=== PATIENT | male | born 1940 | race Caucasian/White ===

== ENCOUNTER → 2017-05-21 | Outpatient (CLI) | payer OTHER ==
[~2017-05-21] MED LIST: ASPI-621 PO; CYAN100T PO; LOSA25TA5 PO; MULT1TAB76 PO; SIMV20TA3 PO; THIA50TA PO; UBID400C4 PO
== END | disposition home or self-care (01) ==
LOC: CFH 07:49
PROVIDERS: ATTEND Family Medicine
DX: G31.89 Other specified degenerative diseases of nervous system (principal); Z86.73 Personal history of transient ischemic attack (TIA), and cerebral infarction without residual deficits
CPT/HCPCS: 70551

== ENCOUNTER → 2018-09-06 | Outpatient (CLI) | payer MEDICARE ==
[~2018-09-06] MED LIST changes: -ASPI-621 PO; +ASPI81TA45 PO; -CYAN100T PO; +CYAN100T2 PO; +LOSA25TA25 PO; -LOSA25TA5 PO; -THIA50TA PO; +THIA50TA4 PO
== END | disposition home or self-care (01) ==
LOC: RAD 10:54
PROVIDERS: ATTEND Family Medicine
DX: R07.2 Precordial pain (principal); I51.7 Cardiomegaly; M47.814 Spondylosis without myelopathy or radiculopathy, thoracic region
CPT/HCPCS: 71046

== ENCOUNTER 2018-09-27 07:21 | Outpatient (CLI) | payer MEDICARE | END 2018-09-27 23:59 | disposition home or self-care (01) | LOC: CFH 07:21 | PROVIDERS: ATTEND Family Medicine | DX: I08.8 Other rheumatic multiple valve diseases (principal); I10 Essential (primary) hypertension | CPT/HCPCS: 93306 ==

== ENCOUNTER 2018-10-06 11:51 | Outpatient (CLI) | payer MEDICARE ==
[~2018-10-06 11:51] MED LIST changes: +REGADENOSON 0.4 MG/5 ML SYRINGE ONE
[2018-10-26] MEDS ORDERED: METO50TA4 PO (12:09)
[2018-10-27] MEDS ORDERED: ATOR-2 PO (09:07)
[2018-10-27] MEDS ORDERED: ISOS30TA8 PO (09:07)
[2018-11-09] MEDS ORDERED: ASPI-496 PO (13:10)
[2018-11-09] MEDS ORDERED: ATOR-2 PO (13:10)
[2018-11-09] MEDS ORDERED: ISOS30TA8 PO (13:10)
[2018-11-16] MEDS ORDERED: AMIO200T42 PO (08:08)
[2018-11-16] MEDS ORDERED: POTA10TA5 PO (08:08)
[2018-11-16] MEDS ORDERED: FURO-93 PO (08:08)
[2018-11-16] MEDS ORDERED: LOSA50TA2 PO (08:08)
[2018-11-16] MEDS ORDERED: DOCU-131 PO (08:08)
[2018-11-16] MEDS ORDERED: CLOP75TA PO (08:08)
[2018-11-16] MEDS ORDERED: HYDR-3240 PO (09:48)
[2018-11-16] MEDS ORDERED: DICL100G19 TP (10:10)
== END 2018-10-06 23:59 | disposition home or self-care (01) ==
LOC: CFH 11:51
PROVIDERS: ATTEND Family Medicine
DX: I25.9 Chronic ischemic heart disease, unspecified (principal)
CPT/HCPCS: 78452; 93017; A9502; J2785

== ENCOUNTER → 2020-04-23 | Outpatient (CLI) | payer MEDICARE ==
[~2020-04-23] MED LIST changes: +AMIO200T42 PO; +ASPI-496 PO; +ATOR-2 PO; +CLOP75TA PO; -CYAN100T2 PO; +CYAN100T22 PO; +DICL100G19 TP; +DOCU-131 PO; +FURO-93 PO; +HYDR-1067 PO; +ISOS30TA8 PO; +LOSA50TA2 PO; +METO50TA4 PO; +POTA10TA5 PO; -REGADENOSON 0.4 MG/5 ML SYRINGE ONE; +SIMV20TA19 PO; -SIMV20TA3 PO
== END | disposition home or self-care (01) ==
LOC: CVU 08:25
PROVIDERS: ATTEND Internal Medicine Cardiovascular Disease
DX: I08.0 Rheumatic disorders of both mitral and aortic valves (principal); I11.9 Hypertensive heart disease without heart failure
CPT/HCPCS: 93306; 93356